=== PATIENT | male | born 1980 | race Caucasian/White ===

== ENCOUNTER 2016-07-27 07:36 | Day surgery (SDC) | payer OTHER ==
[~2016-07-27] VITALS: Ht 180.3 cm; Wt 87.7 kg
[2016-07-27] VITALS (9 sets, daily range): BP systolic 105–141; BP diastolic 52–79; PULSE 55–98; RESP 9–18; Ht 180.3 cm; Wt 87.7 kg
--- NOTE | 2016-07-27 08:20 | HPN ---
Date/Time of Note Date/Time of Note DATE: 07/27/16 TIME: 08:20 Interval H&P Admission Note Pt. seen H&P reviewed: No system changes JUAN CARLOS FOOTE MD Jul 27, 2016 08:20
--- NOTE | 2016-07-27 08:22 | OPPN ---
Date/Time of Note Date/Time of Note DATE: 07/27/16 TIME: 08:21 Operative/Procedure Note Pre-Operative Diagnosis cubital tunnel syn Post-Operative Diagnosis same Procedure ulnar nerve decompression medial epicondylectomy Surgeon: JUAN CARLOS FOOTE MD Anesthesiologist: ALVARO MELENDREZ MD Implants/Grafts: Not applicable Estimated blood loss: minimal Specimens: Not Applicable Complications: None Anesthesia type: JUAN CARLOS DONAHUE MD Jul 27, 2016 08:22
[2016-07-27 08:36] LABS: ADD SCAN DIFF NO
[2016-07-27] MEDS ORDERED: PROPOFOL 20 ML ONE (08:55)
[2016-07-27] MEDS ORDERED: CEFAZOLIN 1 GM INJ ONE (08:55)
[2016-07-27] MEDS ORDERED: MIDAZOLAM 1 MG/ML 2 ML INJ ONE (08:55)
[2016-07-27] MEDS ORDERED: FENTAnyl 50 MCG/ML VIAL ONE (08:55)
[2016-07-27] MEDS ORDERED: LIDOCAINE 2% (SDV) 5 ML INJ ONE (08:55)
[2016-07-27 09:06] LABS: BASOPHILS % 0.6 % (0.0-2.0); EOSINOPHILS # 0.1 10^3/ul (0.0-0.5); EOSINOPHILS % 2.4 % (0.0-7.0); HEMATOCRIT 42.9 % (42.0-52.0); HEMOGLOBIN 14.9 g/dl (14.0-18.0); LYMPHOCYTES # 1.9 10^3/ul (0.8-2.9); LYMPHOCYTES % 37.7 % (15.0-51.0); MEAN CORPUSCULAR HEMOGLOBIN 30.3 pg (29.0-33.0); MEAN CORPUSCULAR HGB CONC 34.7 g/dl (32.0-37.0); MEAN CORPUSCULAR VOLUME 87.4 fl (82.0-101.0); MEAN PLATELET VOLUME 9.9 fl (7.4-10.4); MONOCYTE # 0.6 10^3/ul (0.3-0.9); MONOCYTES % 11.7 % (0.0-11.0); NEUTROPHIL # 2.4 10^3/ul (1.6-7.5); NEUTROPHILS % 46.8 % (39.0-77.0); PLATELET COUNT 208 10^3/UL (140-415); RED BLOOD COUNT 4.91 10^6/ul (4.70-6.10)
[2016-07-27] MEDS ORDERED: LIDOCAINE 1%/EPI 30 ML INJ ONE (09:39)
[2016-07-27 09:42] LABS: ADD UMIC NO; URINE BILIRUBIN (Dip) NEGATIVE (NEGATIVE); URINE BLOOD (Dip) NEGATIVE (NEGATIVE); URINE COLOR LT. YELLOW (YELLOW); URINE GLUCOSE (Dip) NEGATIVE (NEGATIVE); URINE KETONES (Dip) NEGATIVE (NEGATIVE); URINE LEUKOCYTE ESTERASE (Dip) NEGATIVE (NEGATIVE); URINE NITRITE (Dip) NEGATIVE (NEGATIVE); URINE TOTAL PROTEIN (Dip) NEGATIVE (NEGATIVE); URINE UROBILINOGEN (Dip) 0.2 E.U./dL (0.1-1.0)
[2016-07-27] MEDS ORDERED: POLYMYXIN/BACITRACIN 1L IRRIG ONE (09:43)
[2016-07-27] MEDS ORDERED: ONDANSETRON 4 MG INJ ONE (10:00)
[2016-07-27] MEDS ORDERED: METOCLOPRAMIDE 10 MG INJ ONE (10:00)
[2016-07-27] MEDS ORDERED: FENTAnyl 50 MCG/ML VIAL IV PRN (10:30)
[2016-07-27] MEDS ORDERED: DIPHENHYDRAMINE 50 MG INJ IV PRN (10:30)
[2016-07-27] MEDS ORDERED: HYDROmorphONE (0.2 MG/ML) 10ML SYG IV PRN (10:30)
[2016-07-27] MEDS ORDERED: MEPERIDINE 25 MG INJ IV PRN (10:30)
[2016-07-27] MEDS ORDERED: OXYCODONE/ACETAMINOPHEN (5/325) TAB PO PRN ×2 (10:30)
[2016-07-27] MEDS ORDERED: ONDANSETRON 4 MG INJ IV PRN (10:30)
[2016-07-27] MEDS ORDERED: PROCHLORPERAZINE 10 MG INJ IV PRN (10:30)
[2016-07-27] MEDS: HYDROmorphONE (0.2 MG/ML) 10ML SYG IV PRN ×2 (10:51→11:03)
--- NOTE | 2016-07-27 13:20 | OPR ---
DATE OF OPERATION: PREOPERATIVE DIAGNOSIS: Cubital tunnel syndrome, left elbow, ulnar neuropathy, compression neuropat hy, left elbow. POSTOPERATIVE DIAGNOSIS: Cubital tunnel syndrome, left elbow, ulnar neuropathy, compression neuropa thy, left elbow. PROCEDURE: Ulnar nerve decompression, left elbow, medial epicondylectomy, left elbow. SURGEON: Juan Carlos Dey MD OPERATIONS AND INTELLIGENCE ASSISTANT: Staff. HYDRAULIC PRESS SERVICER: Roberta Landaverde MD ANESTHESIA TECHNIQUE: General anesthetic by anesthesiologist, regional anesthetic by the surgeon. SURGICAL PAUSE: In the preop holding area, I examined the patient awake. With a marking pen, I john paul w in the surgical incision. I showed the drawn surgical incision to the patient. I confirmed the p reoperative plan, confirmed what we were going to do, discussed it with the patient, got oral confir mation with the patient, what we were doing. INFORMED CONSENT: At the time I scheduled the operative procedure in the office, we discussed with the patient the risks and hazards of surgery. I mentioned operative mortality, wound infection, ner ve injury, good results, bad results, potential complications. At the end of that conversation, the patient signed a note confirming the informed consent. DESCRIPTION OF PROCEDURE: Sterile prep and drape performed. The hand was exsanguinated by elevatio n and pneumatic tourniquet inflated to 250 mmHg. Posterior posteromedial incision was made and carried down to the ulnar nerve which was identified a nd decompressed along its length. The medial epicondyle was subluxed, subperiosteal exposed creating a flap of periosteum left aircraft accessories mechanic d posteriorly. We excised the medial epicondyle with osteotome with rongeur. The periosteal flap was replaced and sutured in place, hiding all raw bone, keeping it well separate d from the ulnar nerve. The wound was closed in layers of Vicryl deep and Vicryl Rapide on the skin and a bulky dressing wit h the elbow in full extension. The goal of full extension splinting is patient's recover elbow range of motion faster and more comp letely. In the preop holding area. We once again discussed ulnar intrinsic recovery. We are taught to tell patients that one of the goals is to prevent progression of the ulnar neuropathy, progression of th e intrinsic weakness, but we cannot promise recovery. We hope to stop the motor weakness from getti ng worse. We are unable promise it will recover. He is so informed. The operative procedure was a bout a half hour. The patient is awake in recovery. DISCHARGE MEDICATIONS: 1. Hydrocodone. 2. Acetaminophen. 3. ____. 4. Keflex. FOLLOWUP: Will be in my office in 1 week. Dictated By: JUAN CARLOS IVY/HARMONY Conf#: [id number] DID#: [id number]
--- NOTE | 2016-07-30 14:57 | HP ---
DATE OF ADMISSION: 07/27/2016 ADMITTING DIAGNOSIS: Cubital tunnel syndrome, left elbow. HISTORY: The patient is active duty , [address], had presented a year or so ago with numbness and tingling in the ulnar distribution. He had seen a neurologist through the [place], made a diagnos is of cubital tunnel syndrome bilaterally, worse on the left. His chief complaint was numbness and tingling in the ulnar distribution of both hands, worse left, for several years. He was getting wor se and getting progressively weak. Physical examination preoperatively had shown tenderness behind the elbow, positive compression test of the ulnar nerve to left hand, clear and measurable ulnar int rinsic atrophy, weakness of first dorsal interosseous. 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 PHYSICAL EXAMINATION: GENERAL: Well-nourished male. HEENT: Pupils ____ accommodation. Tympanic membranes clear. Good oral hygiene. LUNGS: Clear. ABDOMEN: Soft. EXTREMITIES: Lower extremities unremarkable. Persistent problems of the cubital tunnel, left elbow as described above. The patient admitted at this time for elective cubital tunnel decompression medial epicondylectomy. Dictated By: JUAN CARLOS IVY/HARMONY Conf#: [id number] DID#: [id number]
== END 2016-07-27 12:10 | disposition home or self-care (01) ==
LOC: SDS 07:36
PROVIDERS: ATTEND Orthopaedic Surgery Hand Surgery
DX: G56.22 Lesion of ulnar nerve, left upper limb (principal); E66.9 Obesity, unspecified; Z68.27 Body mass index [BMI] 27.0-27.9, adult
CPT/HCPCS: 25150; 64718; 81003; 85025; J0690; J1170; J2250; J2405; J2765; J3010